=== PATIENT | male | born 2000 | race Caucasian/White ===

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

== ENCOUNTER 2019-11-29 13:15 | Inpatient (IN) | payer BC ==
[2019-12-13] MEDS ORDERED: Lactated Ringers 1,000 ML IV SCH (00:01)
[2019-12-13] MEDS ORDERED: Sodium Chloride 0.9% 10 ML Syringe FLUSH PRN (00:01)
[2019-12-13] MEDS ORDERED: Scopolamine 1.5 MG Transdermal Patch TRDERM SCH (00:01)
[2019-12-13] MEDS ORDERED: Lidocaine 1%/Sod Bicarbonate in NS 8.4% 1 ML Syringe IDERM PRN (00:01)
[2019-12-13] MEDS ORDERED: Naloxone 0.4 MG/ML SDV IVPUSH PRN (06:31)
[2019-12-13] MEDS ORDERED: Morphine 2 MG/ML SYRINGE IVPUSH PRN (06:31)
[2019-12-13] MEDS ORDERED: Magnesium Hydroxide 400 MG/5 ML Susp 30 ML Cup PO PRN (06:31)
[2019-12-13] MEDS ORDERED: Bisacodyl 5 MG Tab PO PRN (06:31)
[2019-12-13] MEDS ORDERED: Sennosides 8.6 MG Tab PO PRN (06:31)
[2019-12-13] MEDS ORDERED: Midazolam 1 MG/ML 2 ML SDV ONE ×2 (07:11→07:46)
[2019-12-13] MEDS ORDERED: ceFAZolin 1 GM Vial ONE ×2 (07:12)
[2019-12-13] MEDS ORDERED: Ondansetron 4 MG/2 ML SDV ONE ×2 (07:12→10:05)
[2019-12-13] MEDS ORDERED: fentaNYL 100 MCG/2 ML SDV ONE (07:12)
[2019-12-13] MEDS ORDERED: Propofol 200 MG/20 ML SDV ONE ×2 (07:17→10:16)
--- NOTE | 2019-12-13 07:35 | PCM.PREANE ---
Preanesthetic Assessment - Anesthesia/Transfusion/Family Hx Anesthesia History: Prior Anesthesia Reaction Type of Anesthesia Reaction: Excessive Nausea/Vomiting Family History of Anesthesia Reaction: No Transfusion History: No Prior Transfusion(s) - Review of Systems General: No Symptoms Pulmonary: No Symptoms Cardiovascular: No Symptoms Gastrointestinal: No Symptoms Neurological: No Symptoms Other: Reports: None - Physical Assessment NPO Status Date: 12/12/19 NPO Status Time: 20:00 ASA Class: 2 Mental Status: Alert & Oriented x3 Airway Class: Mallampati = 2 Dentition: Reports: Normal Dentition Thyro-Mental Finger Breadths: 3 Mouth Opening Finger Breadths: 3 ROM/Head Extension: Full Lungs: Clear to Auscultation, Normal Respiratory Effort Cardiovascular: Regular Rate, Regular Rhythm, Murmurs - Lab Values: Laboratory Last Values MRSA (PCR) Negative 11/16/19 15:39 - Imaging/EKG Impressions: 2019 EKG SB 1'AVB 2018 ECHO EF 65-70% trace mitral valve regurgitation - Allergies Allergies/Adverse Reactions: Allergies Allergy/AdvReac Type Severity Reaction Status Date / Time No Known Allergies Allergy Verified 12/10/19 12:18 - Acknowledgements Anesthesia Type Planned: Spinal Pt an Appropriate Candidate for the Planned Anesthesia: Yes Alternatives and Risks of Anesthesia Discussed w Pt/Guardian: Yes Pt/Guardian Understands and Agrees with Anesthesia Plan: Yes PreAnesthesia Questionnaire HEENT History: Reports: None Cardiovascular History: Reports: Heart Murmur Other Cardiovascular History: coronary artery ectasia Respiratory History: Reports: None Gastrointestinal History: Reports: None Genitourinary History: Reports: None CLINICAL SUPPORT ASSOCIATE History: Reports: None Musculoskeletal History: Reports: RA Other Musculoskeletal History: Juvenile RA, in remission now Neurological History: Reports: None Psychiatric History: Reports: None Endocrine/Metabolic History: Reports: None Hematologic History: Reports: None Immunologic History: Reports: Other (See Below) Other Immunologic History: macrophage activation syndrome Oncologic (Cancer) History: Reports: None Dermatologic History: Reports: None - Past Surgical History Head Surgeries/Procedures: Reports: None HEENT Surgical History: Reports: None Cardiovascular Surgical History: Reports: None Respiratory Surgical History: Reports: None GI Surgical History: Reports: None Female Surgical History: Reports: None Male Surgical History: Reports: None Endocrine Surgical History: Reports: None Neurological Surgical History: Reports: None Musculoskeletal Surgical History: Reports: Hip Replacement, Other (See Below) Other Musculoskeletal Surgeries/Procedures:: right hip replacement Oncologic Surgical History: Reports: None, Bone Marrow Aspiration Dermatological Surgical History: Reports: None - SUBSTANCE USE Smoking Status *Q: Current Every Day Smoker Recreational Drug Use History: No - HOME MEDS Home Medications: Home Meds Methotrexate Sodium [Methotrexate] 25 mg PO CHICAS 08/20/19 [History] Adalimumab [Humira(Cf) Pen] 1 dose IM Q14D 12/10/19 [History] - CURRENT (IN HOUSE) MEDS Current Meds: Current Medications Aspirin (Ecotrin) 325 mg PO BID AMIRA Bisacodyl (Dulcolax) 5 mg PO DAILY PRN PRN Reason: Constipation Morphine Sulfate 8 mg/Epinephrine HCl 0.3 mg/Cefuroxime Sodium 750 mg/Ketorolac Tromethamine 30 mg/Sodium Chloride 7.9 ml 0 mg .XX ONETIME ONE Stop: 12/13/19 08:31 Cyclobenzaprine HCl (Flexeril) 10 mg PO TID PRN PRN Reason: Spasms Docusate Sodium (Colace) 100 mg PO BID AMIRA Famotidine (Pepcid) 20 mg PO Q12H [facility] Lactated Ringer's (Ringers, Lactated) 1,000 mls @ 125 mls/hr IV ASDIRECTED [facility] Stop: 12/13/19 23:00 Cefazolin Sodium/Dextrose 2 gm (/ Premix) 50 mls @ 100 mls/hr IV Q8H [facility] Stop: 12/13/19 22:59 Ketorolac Tromethamine (Toradol) 15 mg IVPUSH Q6H PRN PRN Reason: Pain Lidocaine/Sodium Bicarbonate (Buffered Lidocaine 1% In Ns 8.4%) 0.25 ml IDERM ONETIME PRN PRN Reason: Prior to IV Start Stop: 12/13/19 18:00 Magnesium Hydroxide (Milk Of Magnesia) 30 ml PO BID PRN PRN Reason: Constipation Morphine Sulfate (Morphine) 2 mg IVPUSH Q2H PRN PRN Reason: Breakthrough Pain Naloxone HCl (Narcan) 0.1 mg IVPUSH Q5M PRN PRN Reason: Oversedation Oxycodone/Acetaminophen (Percocet 325-5 Mg) 1 - 2 tab PO Q4H PRN PRN Reason: Pain Scopolamine (Transderm-Scop) 1.5 mg TRDERM ONETIME [facility] Stop: 12/13/19 18:00 Senna (Senna) 8.6 mg PO BID PRN PRN Reason: Constipation Sodium Chloride (Saline Flush) 10 ml FLUSH ASDIRECTED PRN PRN Reason: Keep Vein Open Stop: 12/13/19 18:00 Discontinued Medications Cefazolin Sodium (Ancef) Confirm Administered Dose 1 gm .ROUTE .STK-MED ONE Stop: 12/13/19 07:13 Cefazolin Sodium (Ancef) Confirm Administered Dose 1 gm .ROUTE .STK-MED ONE Stop: 12/13/19 07:13 Fentanyl (Sublimaze) Confirm Administered Dose 100 mcg .ROUTE .STK-MED ONE Stop: 12/13/19 07:13 Midazolam HCl (Versed 1 Mg/Ml) Confirm Administered Dose 2 mg .ROUTE .STK-MED ONE Stop: 12/13/19 07:12 Ondansetron HCl (Zofran) Confirm Administered Dose 4 mg .ROUTE .STK-MED ONE Stop: 12/13/19 07:13 Propofol (Diprivan 20 Ml) Confirm Administered Dose 200 mg .ROUTE .STK-MED ONE Stop: 12/13/19 07:18
[2019-12-13] MEDS ORDERED: Dexamethasone 4 MG/ML 5 ML MDV ONE (07:44)
[2019-12-13] MEDS ORDERED: diphenhydrAMINE 50 MG/ML SDV ONE (07:45)
--- NOTE | 2019-12-13 08:33 | PCM.CONS ---
H&P History of Present Illness - General Date of Service: 12/13/19 Admit Problem/Dx: Admission Diagnosis/Problem Admission Diagnosis/Problem Osteoarthritis of hip Source of Information: Patient, Provider, RN, RN Notes Reviewed History Limitations: Reports: No Limitations - History of Present Illness Initial Comments - Free Text/Narative: Herb Genao is a 19 yo male patient of Dr. Moody who is post-operative day 0 of Left AVRIL. Hospital medicine was consulted for post-operative medical care of the following listed medical conditions. At this time he is resting comfortably in bed. Pain is controlled. He denies any chest pain, shortness of breath, palpitations, nausea, or vomiting. He carries a history of: Systolic heart murmur, coronary artery ectasia, Juvenile RA, RA, macrophage activation syndrome , Post-operative nausea and vomiting, Anemia, atypical Kawasaki disease, dacryostenosis. He is a former chewing tobacco user. He is a full code. His primary care provider is Kristin Fernandez PA-C. Left Hip Pain Score (Numeric/FACES): 0 - Related Data Allergies/Adverse Reactions: Allergies Allergy/AdvReac Type Severity Reaction Status Date / Time No Known Allergies Allergy Verified 12/13/19 11:41 Home Medications: Home Meds Methotrexate Sodium [Methotrexate] 25 mg PO SA 08/20/19 [History] Adalimumab [Humira(Cf) Pen] 1 dose IM Q14D 12/10/19 [History] Past Medical History HEENT History: Reports: None Cardiovascular History: Reports: Heart Murmur Other Cardiovascular History: coronary artery ectasia Respiratory History: Reports: None Gastrointestinal History: Reports: None Genitourinary History: Reports: None 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: Reports: None Musculoskeletal History: Reports: RA Other Musculoskeletal History: Juvenile RA, in remission now Neurological History: Reports: None Psychiatric History: Reports: None Endocrine/Metabolic History: Reports: None Hematologic History: Reports: None Immunologic History: Reports: Other (See Below) Other Immunologic History: macrophage activation syndrome Oncologic (Cancer) History: Reports: None Dermatologic History: Reports: None - Past Surgical History Head Surgeries/Procedures: Reports: None HEENT Surgical History: Reports: None Cardiovascular Surgical History: Reports: None Respiratory Surgical History: Reports: None GI Surgical History: Reports: None Female Surgical History: Reports: None Male Surgical History: Reports: None Endocrine Surgical History: Reports: None Neurological Surgical History: Reports: None Musculoskeletal Surgical History: Reports: Hip Replacement, Other (See Below) Other Musculoskeletal Surgeries/Procedures:: right hip replacement Oncologic Surgical History: Reports: None, Bone Marrow Aspiration Dermatological Surgical History: Reports: None Social & Family History - Family History Family Medical History: Noncontributory - Tobacco Use Smoking Status *Q: Current Every Day Smoker Years of Tobacco use: 2 Packs/Tins Daily: 0.2 Used Tobacco, but Quit: Yes Month/Year Tobacco Last Used: 11/19/19 - Caffeine Use Caffeine Use: Reports: Coffee, Soda - Recreational Drug Use Recreational Drug Use: No H&P Review of Systems - Review of Systems: Review Of Systems: See Below General: Reports: No Symptoms. Denies: Fever, Chills HEENT: Reports: No Symptoms. Denies: Headaches, Sore Throat Pulmonary: Reports: No Symptoms. Denies: Shortness of Breath, Wheezing, Pleuritic Chest Pain, Cough, Sputum Cardiovascular: Reports: No Symptoms. Denies: Chest Pain, Palpitations, Dyspnea on Exertion, Edema Gastrointestinal: Reports: No Symptoms. Denies: Abdominal Pain, Constipation, Distension, Nausea, Vomiting Genitourinary: Reports: No Symptoms. Denies: Pain Musculoskeletal: Reports: Leg Pain (left ) Skin: Reports: No Symptoms. Denies: Cyanosis Psychiatric: Reports: No Symptoms. Denies: Confusion Neurological: Reports: Difficulty Walking, Gait Disturbance Hematologic/Lymphatic: Reports: No Symptoms Immunologic: Reports: No Symptoms Exam - Exam Exam: See Below - Vital Signs Vital Signs: Last Vital Signs Temp 97.6 F 12/13/19 07:15 Pulse 57 L 12/13/19 07:15 Resp 16 12/13/19 07:15 BP 124/76 12/13/19 07:15 Pulse Ox 100 12/13/19 07:15 Weight: 190 lb - Exam Quality Assessment: DVT Prophylaxis General: Alert, Oriented, Cooperative. No: Mild Distress HEENT: Conjunctiva Clear, EACs Clear, Mucosa Moist & [place], Posterior Pharynx Clear, PERRLA Neck: Supple, Trachea Midline Lungs: Clear to Auscultation, Normal Respiratory Effort Cardiovascular: Regular Rate, Regular Rhythm, Systolic Murmur GI/Abdominal Exam: Normal Bowel Sounds, Soft, Non-Tender, No Distention (Male) Exam: Deferred Rectal (Males) Exam: Deferred Extremities: Normal Capillary Refill, Leg Pain, Limited Range of Motion, Other ( Bandage in place on left leg. Bandage is dry and intact. Cooling pack in place. ) Peripheral Pulses: 3+: Radial (L), Radial (R), Dorsalis Pedis (L), Dorsalis Pedis (R) Skin: Warm, Dry, Intact Neurological: Cranial Nerves Intact (Grossly ) Neuro Extensive - Mental Status: Alert, Oriented x3 Sepsis Event Note - Evaluation Sepsis Screening Result: No Definite Risk - Focused Exam Vital Signs: Vital Signs Temp Pulse Resp BP Pulse Ox 12/13/19 07:15 97.6 F 57 L 16 124/76 100 Date Exam was Performed: 12/13/19 Time Exam was Performed: 14:24 Consult PN Assessment/Plan POD#: 0 Procedures: Procedures ACUTE HEPATITIS PANEL (06/16/15) ANTINUCLEAR ANTIBODIES (06/20/14) ASSAY OF ALDOLASE (05/25/15) ASSAY OF BLOOD/URIC ACID (11/11/14) ASSAY OF CALCIUM (08/18/19) ASSAY OF CK (CPK) (01/15/18) ASSAY OF CREATININE (07/12/19) ASSAY OF FERRITIN (07/12/19) ASSAY OF HAPTOGLOBIN QUANT (11/11/14) ASSAY OF IRON (03/25/19) ASSAY OF LIPASE (09/20/15) ASSAY OF PARATHORMONE (08/18/19) ASSAY OF PREALBUMIN (08/12/19) ASSAY OF TRANSFERRIN (03/25/19) ASSAY OF TRIGLYCERIDES (11/16/14) AUTOMATED RETICULOCYTE COUNT (11/11/14) C DIFF AMPLIFIED PROBE (11/10/19) C-REACTIVE PROTEIN (08/12/19) CHEST X-RAY 1 VIEW FRONTAL (06/23/15) CHEST X-RAY 2VW FRONTAL&LATL (02/09/15) CHYLMD TRACH DNA AMP PROBE (09/24/17) COMPLETE CBC AUTOMATED (08/12/19) COMPLETE CBC W/AUTO DIFF WBC (07/12/19) COMPREHEN METABOLIC PANEL (08/12/19) CRYPTOSPORIDIUM AG IA (08/18/19) CULTURE OTHR SPECIMN AEROBIC (02/17/15) DRAIN/INJ JOINT/BURSA W/O US (12/25/18) EMERGENCY DEPT VISIT (04/02/18) EMERGENCY DEPT VISIT (04/09/17) EMERGENCY DEPT VISIT (05/25/16) EMERGENCY DEPT VISIT (09/20/15) FIBRIN DEGRADATION QUANT (12/11/16) FIBRINOGEN ACTIVITY (09/23/17) GIARDIA AG IA (08/18/19) HELICOBACTER PYLORI ANTIBODY (09/20/15) HEPATIC FUNCTION PANEL (07/12/19) HETEROPHILE ANTIBODY SCREEN (09/23/17) HYDRATE IV INFUSION ADD-ON (04/09/17) HYDRATION IV INFUSION INIT (09/07/15) LACTATE (LD) (LDH) ENZYME (05/25/15) LEUKOCYTE ASSESSMENT FECAL (08/18/19) LIPID PANEL (07/14/18) MRI JOINT LWR EXTR W/O&W/DYE (05/20/18) N.GONORRHOEAE DNA AMP PROB (09/24/17) PROTHROMBIN TIME (08/12/19) RBC SED RATE AUTOMATED (08/12/19) ROUTINE VENIPUNCTURE (04/09/17) SHIGA-LIKE TOXIN AG IA (08/18/19) STOOL CULTR AEROBIC BACT EA (08/18/19) THER/PROPH/DIAG INJ IV PUSH (04/09/17) THROMBOPLASTIN TIME PARTIAL (08/12/19) TX/PRO/DX INJ NEW DRUG ADDON (04/09/17) URINALYSIS AUTO W/SCOPE (04/09/17) VITAMIN B-12 (11/11/14) WEST NILE VIRUS AB IGM (06/20/14) X-RAY EXAM CHEST 2 VIEWS (03/25/19) X-RAY EXAM HIP UNI 1 VIEW (09/24/17) X-RAY EXAM L-S SPINE 2/3 VWS (06/23/15) X-RAY EXAM OF ABDOMEN (09/20/15) X-RAY EXAM OF COLLAR BONE (02/09/15) X-RAY EXAM OF PELVIS (09/23/17) X-RAY EXAM OF SHOULDER (06/20/14) (1) Coronary artery ectasia SNOMED Code(s): 755968496 Code(s): I77.89 - OTHER SPECIFIED DISORDERS OF ARTERIES AND ARTERIOLES Priority: High Current Visit: No (2) Macrophage activation syndrome SNOMED Code(s): 832696285 Code(s): D76.1 - HEMOPHAGOCYTIC LYMPHOHISTIOCYTOSIS Priority: High Current Visit: No (3) S/P total hip arthroplasty SNOMED Code(s): 801436915863, 174752221369 Code(s): Z96.649 - PRESENCE OF UNSPECIFIED ARTIFICIAL HIP JOINT Priority: High Current Visit: No Qualifiers: Laterality: left Qualified Code(s): Z96.642 - Presence of left artificial hip joint (4) Systemic onset juvenile idiopathic arthritis SNOMED Code(s): 720489941 Code(s): M08.20 - JUVENILE RHEUMATOID ARTHRITIS WITH SYSTEMIC ONSET, UNSP SITE Priority: High Current Visit: No (5) Systolic murmur SNOMED Code(s): 51564078 Code(s): R01.1 - CARDIAC MURMUR, UNSPECIFIED Priority: Medium Current Visit: No (6) History of postoperative nausea and vomiting SNOMED Code(s): 233578348, 830371700 Code(s): Z87.898 - PERSONAL HISTORY OF OTHER SPECIFIED CONDITIONS Priority : Medium Current Visit: No (7) Atypical Kawasaki disease SNOMED Code(s): 96386087 Code(s): M30.3 - MUCOCUTANEOUS LYMPH NODE SYNDROME [[place]] Priority: Medium Current Visit: No (8) Dacryostenosis SNOMED Code(s): 62414068 Code(s): H04.559 - ACQUIRED STENOSIS OF UNSPECIFIED NASOLACRIMAL DUCT Priority: Low Current Visit: No Qualifiers: Laterality: unspecified laterality Qualified Code(s): H04.559 - Acquired stenosis of unspecified nasolacrimal duct (9) Anemia SNOMED Code(s): 982715078 Code(s): D64.9 - ANEMIA, UNSPECIFIED Priority: Medium Current Visit: No Qualifiers: Anemia type: unspecified type Qualified Code(s): D64.9 - Anemia, unspecified (10) Ex-tobacco chewer SNOMED Code(s): 223932635 Code(s): Z87.891 - PERSONAL HISTORY OF NICOTINE DEPENDENCE Priority: Low Current Visit: No Problem List Initiated/Reviewed/Updated: Yes Plan: I/P: Acute: S/P left total hip arthroplasty - post-operative day 0 -DVT prophylaxis and pain management per primary care team -PT/OT -IS/RT -Monitor oxygen saturation -Titrate oxygen as needed -Home medications reviewed -Vital signs stable -Monitor labs -Pre-operative Hgb was 14.6 -Pre-operative GFR was >60 Osteoarthritis of left hip -Pain management per primary care team Former chewing tobacco user -Reports stopped 10 days prior -Nicotine patch if needed Chronic: Systolic heart murmur MARITZA Anemia 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 His PCP is Kristin Fernandez PA-C Thank you for allowing us to participate in the care of this patient!! Requesting Provider: Dr. Moody Date Consult Requested: 12/13/19 Patient History Reviewed: Yes Admission H&P Reviewed: Yes Notified Requestor: Yes
[2019-12-13] MEDS ORDERED: Ondansetron 4 MG/2 ML SDV IVPUSH PRN (09:33)
[2019-12-13] MEDS ORDERED: fentaNYL 100 MCG/2 ML SDV IVPUSH PRN (09:33)
[2019-12-13] MEDS ORDERED: diphenhydrAMINE 50 MG/ML SDV IVPUSH PRN (09:33)
[2019-12-13] MEDS ORDERED: Haloperidol Lactate 5 MG/ML SDV IVPUSH PRN (09:33)
[2019-12-13] MEDS: Bupivacaine 0.25% 10 ML SDV ONE ×2 (09:54→10:11)
[2019-12-13] MEDS: ceFAZolin 1 GM Vial ONE ×2 (09:55→10:06)
[2019-12-13] MEDS: Iodine/Sodium Iodide 2% Tincture 30 ML Bottle ONE ×2 (09:55→10:04)
[2019-12-13] MEDS: Morphine 8 MG, EPINEPHrine 0.3 MG, Cefuroxime 750 MG, Ketorolac 30 MG, Sodium Chloride ... ONE ×10 (09:56→10:10)
[2019-12-13] MEDS: Vancomycin 1 GM SDV ONE ×2 (09:57→10:12)
[2019-12-13] MEDS ORDERED: Lidocaine 1% 4 ML ONE (09:57)
--- NOTE | 2019-12-13 10:47 | PCM.POSTAN ---
POST ANESTHESIA ASSESSMENT - MENTAL STATUS Mental Status: Alert, Oriented - VITAL SIGNS Vital Signs: Last Vital Signs Temp 36.4 C 12/13/19 07:15 Pulse 57 L 12/13/19 07:15 Resp 16 12/13/19 07:15 BP 124/76 12/13/19 07:15 Pulse Ox 100 12/13/19 07:15 - RESPIRATORY Respiratory Status: Respiratory Rate WNL, Airway Patent, O2 Saturation Stable - CARDIOVASCULAR CV Status: Pulse Rate WNL, Blood Pressure Stable - GASTROINTESTINAL GI Status: No Symptoms - PAIN Pain Score: 0 - POST OP HYDRATION Hydration Status: Adequate & Stable
--- NOTE | 2019-12-13 11:34 | CR ---
Pelvis and left hip: AP view of the pelvis was obtained as well as crosstable lateral view of the left hip. Comparison: Previous pelvis and right hip study of 08/23/19. Left hip prosthesis is seen. Components are aligned. Soft tissue air is noted from the surgical procedure. Stable right hip prosthesis is seen. No acute bony abnormality is appreciated. Impression: 1. Satisfactory appearance of recently placed left hip prosthesis. 2. Stable appearing right hip prosthesis is noted. Diagnostic code #2 This report was dictated in [place] Standard Time
[2019-12-13] MEDS: Acetaminophen/oxyCODONE 325-5 MG Tab PO PRN ×2 (13:24→20:24)
--- NOTE | 2019-12-13 13:47 | PCM48HPAN ---
Post Anesthesia Note - EVALUATION WITHIN 48HRS OF ANESTHETIC Vital Signs in Normal Range: Yes Patient Participated in Evaluation: Yes Respiratory Function Stable: Yes Airway Patent: Yes Cardiovascular Function Stable: Yes Hydration Status Stable: Yes Pain Control Satisfactory: Yes Nausea and Vomiting Control Satisfactory: Yes (no N/V when discharged) Mental Status Recovered: Yes Vital Signs: Last Vital Signs Temp 36.3 C 12/13/19 11:25 Pulse 56 L 12/13/19 12:02 Resp 13 12/13/19 11:25 BP 114/58 L 12/13/19 12:02 Pulse Ox 100 12/13/19 12:02
[2019-12-13] MEDS: ceFAZolin 2 GM in Premix Bag 1 BAG IV SCH (16:00)
[2019-12-13] MEDS: Ketorolac 15 MG/ML SDV IVPUSH PRN (17:00)
[2019-12-13] MEDS: Famotidine 20 MG Tab PO SCH (20:24)
[2019-12-13] MEDS: Docusate Sodium 100 MG Cap PO SCH (20:24)
[2019-12-13] MEDS: Cyclobenzaprine 10 MG Tab PO PRN (20:24)
[2019-12-14] MEDS: Acetaminophen/oxyCODONE 325-5 MG Tab PO PRN ×3 (00:48→10:15)
[2019-12-14] MEDS: ceFAZolin 2 GM in Premix Bag 1 BAG IV SCH ×3 (00:48→06:57)
[2019-12-14] MEDS: Ketorolac 15 MG/ML SDV IVPUSH PRN (00:49)
[2019-12-14] MEDS: Cyclobenzaprine 10 MG Tab PO PRN (06:12)
--- NOTE | 2019-12-14 07:11 | PCM.CONSN ---
- General Info Date of Service: 12/14/19 Admission Dx/Problem (Free Text): Admission Diagnosis/Problem Admission Diagnosis/Problem Osteoarthritis of hip Functional Status: Reports: Pain Controlled, Tolerating Diet, Ambulating, Urinating, Incentive Spirometry. Denies: New Symptoms - Review of Systems General: Reports: No Symptoms. Denies: Fever, Chills HEENT: Reports: No Symptoms. Denies: Headaches, Sore Throat Pulmonary: Reports: No Symptoms. Denies: Shortness of Breath, Pleuritic Chest Pain, Cough, Sputum, Wheezing Cardiovascular: Reports: No Symptoms. Denies: Chest Pain, Palpitations, Dyspnea on Exertion Gastrointestinal: Reports: No Symptoms. Denies: Abdominal Pain, Constipation, Diarrhea, Nausea, Vomiting Genitourinary: Reports: No Symptoms. Denies: Pain Musculoskeletal: Reports: Leg Pain Skin: Reports: No Symptoms. Denies: Cyanosis Neurological: Reports: Difficulty Walking, Gait Disturbance. Denies: Confusion Psychiatric: Reports: No Symptoms - Patient Data Vitals - Most Recent: Last Vital Signs Temp 98.1 F 12/14/19 06:14 Pulse 44 L 12/14/19 06:14 Resp 18 12/14/19 06:14 BP 121/64 12/14/19 06:13 Pulse Ox 100 12/14/19 06:14 Weight - Most Recent: 196 lb 14.4 oz I&O - Last 24 Hours: Intake & Output 12/13/19 12/14/19 12/14/19 22:59 06:59 14:59 Intake Total 110 750 Output Total 400 1350 Balance -290 -600 Lab Results Last 24 Hours: Laboratory Results - last 24 hr 12/13/19 12/14/19 Range/Units 07:30 05:46 Sodium 140 (136-145) mEq/L Potassium 4.5 (3.5-5.1) mEq/L Chloride 104 (98-107) mEq/L Carbon Dioxide 24 (21-32) mEq/L Anion Gap 16.5 H (5-15) BUN 13 (7-18) mg/dL Creatinine 0.9 (0.7-1.3) mg/dL Est Cr Clr Drug Dosing 143.70 mL/min Estimated GFR (MDRD) > 60 (>60) mL/min BUN/Creatinine Ratio 14.4 (14-18) Glucose 104 (74-106) mg/dL Calcium 9.1 (8.5-10.1) mg/dL Total Bilirubin 0.7 (0.2-1.0) mg/dL AST 28 (15-37) U/L ALT 25 (16-63) U/L Alkaline Phosphatase 77 (46-116) U/L Total Protein 6.9 (6.4-8.2) g/dl Albumin 3.8 (3.4-5.0) g/dl Globulin 3.1 gm/dL Albumin/Globulin Ratio 1.2 (1-2) Blood Type O POSITIVE Gel Antibody Screen Negative Med Orders - Current: Current Medications Aspirin (Ecotrin) 325 mg PO BID [facility] Bisacodyl (Dulcolax) 5 mg PO DAILY PRN PRN Reason: Constipation Cyclobenzaprine HCl (Flexeril) 10 mg PO TID PRN PRN Reason: Spasms Last Admin: 12/14/19 06:12 Dose: 10 mg Docusate Sodium (Colace) 100 mg PO BID [facility] Last Admin: 12/13/19 20:24 Dose: 100 mg Famotidine (Pepcid) 20 mg PO Q12H [facility] Last Admin: 12/13/19 20:24 Dose: 20 mg Cefazolin Sodium/Dextrose 2 gm (/ Premix) 50 mls @ 100 mls/hr IV Q8H [facility] Stop: 12/14/19 08:14 Last Admin: 12/14/19 06:57 Dose: Not Given Ketorolac Tromethamine (Toradol) 15 mg IVPUSH Q6H PRN PRN Reason: Pain Last Admin: 12/14/19 00:49 Dose: 15 mg Magnesium Hydroxide (Milk Of Magnesia) 30 ml PO BID PRN PRN Reason: Constipation Morphine Sulfate (Morphine) 2 mg IVPUSH Q2H PRN PRN Reason: Breakthrough Pain Naloxone HCl (Narcan) 0.1 mg IVPUSH Q5M PRN PRN Reason: Oversedation Oxycodone/Acetaminophen (Percocet 325-5 Mg) 1 - 2 tab PO Q4H PRN PRN Reason: Pain Last Admin: 12/14/19 06:12 Dose: 2 tab Senna (Senna) 8.6 mg PO BID PRN PRN Reason: Constipation Discontinued Medications Bupivacaine HCl (Sensorcaine-Mpf 0.25%) Confirm Administered Dose 40 ml .ROUTE .STK-MED ONE Stop: 12/13/19 07:39 Last Admin: 12/13/19 10:11 Dose: 30 ml Cefazolin Sodium (Ancef) Confirm Administered Dose 1 gm .ROUTE .STK-MED ONE Stop: 12/13/19 07:13 Cefazolin Sodium (Ancef) Confirm Administered Dose 1 gm .ROUTE .STK-MED ONE Stop: 12/13/19 07:13 Cefazolin Sodium (Ancef) Confirm Administered Dose 2 gm .ROUTE .STK-MED ONE Stop: 12/13/19 07:39 Last Admin: 12/13/19 10:06 Dose: 2 gm Morphine Sulfate 8 mg/Epinephrine HCl 0.3 mg/Cefuroxime Sodium 750 mg/Ketorolac Tromethamine 30 mg/Sodium Chloride 7.9 ml 0 mg .XX ONETIME ONE Stop: 12/13/19 08:31 Last Admin: 12/13/19 10:10 Dose: 788.3 mg Dexamethasone (Dexamethasone) Confirm Administered Dose 20 mg .ROUTE .ST-MED ONE Stop: 12/13/19 07:45 Diphenhydramine HCl (Benadryl) Confirm Administered Dose 50 mg .ROUTE .ST-MED ONE Stop: 12/13/19 07:46 Diphenhydramine HCl (Benadryl) 25 mg IVPUSH Q6H PRN PRN Reason: pruritis Stop: 12/13/19 18:00 Fentanyl (Sublimaze) Confirm Administered Dose 100 mcg .ROUTE .STK-MED ONE Stop: 12/13/19 07:13 Fentanyl (Sublimaze) 50 mcg IVPUSH Q5M PRN PRN Reason: Pain Stop: 12/13/19 18:00 Haloperidol Lactate (Haldol) 1 mg IVPUSH ONETIME PRN PRN Reason: PERSISENT NAUSEA Stop: 12/13/19 12:00 Lactated Ringer's (Ringers, Lactated) 1,000 mls @ 125 mls/hr IV ASDIRECTED [facility] Stop: 12/13/19 23:00 Last Admin: 12/13/19 07:30 Dose: 125 mls/hr Lidocaine HCl (Xylocaine-Mpf 1%) Confirm Administered Dose 4 mls @ as directed .ROUTE .STK-MED ONE Stop: 12/13/19 09:58 Iodine (Iodine 2% Mild Tincture) Confirm Administered Dose 30 ml .ROUTE .STK- MED ONE Stop: 12/13/19 07:39 Last Admin: 12/13/19 10:04 Dose: 18 ml Lidocaine/Sodium Bicarbonate (Buffered Lidocaine 1% In Ns 8.4%) 0.25 ml IDERM ONETIME PRN PRN Reason: Prior to IV Start Stop: 12/13/19 18:00 Last Admin: 12/13/19 07:29 Dose: 0.25 ml Midazolam HCl (Versed 1 Mg/Ml) Confirm Administered Dose 2 mg .ROUTE .STK-MED ONE Stop: 12/13/19 07:12 Midazolam HCl (Versed 1 Mg/Ml) Confirm Administered Dose 2 mg .ROUTE .STK-MED ONE Stop: 12/13/19 07:47 Ondansetron HCl (Zofran) Confirm Administered Dose 4 mg .ROUTE .STK-MED ONE Stop: 12/13/19 07:13 Ondansetron HCl (Zofran) 4 mg IVPUSH ONETIME PRN PRN Reason: Nausea/Vomiting Stop: 12/13/19 13:00 Ondansetron HCl (Zofran) Confirm Administered Dose 4 mg .ROUTE .STK-MED ONE Stop: 12/13/19 10:06 Propofol (Diprivan 20 Ml) Confirm Administered Dose 200 mg .ROUTE .STK-MED ONE Stop: 12/13/19 07:18 Propofol (Diprivan 20 Ml) Confirm Administered Dose 200 mg .ROUTE .STK-MED ONE Stop: 12/13/19 10:17 Scopolamine (Transderm-Scop) 1.5 mg TRDERM ONETIME [facility] Stop: 12/13/19 18:00 Last Admin: 12/13/19 07:41 Dose: 1.5 mg Sodium Chloride (Saline Flush) 10 ml FLUSH ASDIRECTED PRN PRN Reason: Keep Vein Open Stop: 12/13/19 18:00 Tranexamic Acid (Cyklokapron) Confirm Administered Dose 1,000 mg .ROUTE .STK- MED ONE Stop: 12/13/19 07:39 Last Admin: 12/13/19 10:12 Dose: 1,000 mg Vancomycin HCl (Vancomycin) Confirm Administered Dose 1 gm .ROUTE .STK-MED ONE Stop: 12/13/19 07:39 Last Admin: 12/13/19 10:12 Dose: 1 gm - Exam Quality Assessment: DVT Prophylaxis General: Alert, Oriented, Cooperative, No Acute Distress HEENT: Pupils Equal, Pupils Reactive, Mucous Membr. Moist/[place] Neck: Supple, Trachea Midline Lungs: Clear to Auscultation, Normal Respiratory Effort Cardiovascular: Regular Rate, Regular Rhythm GI/Abdominal Exam: Normal Bowel Sounds, Soft, Non-Tender, No Distention (Male) Exam: Deferred Back Exam: Normal Inspection, Full Range of Motion Extremities: Normal Capillary Refill, Leg Pain, Limited Range of Motion, Other ( Bandage on left leg. Cooling pack in place. ) Peripheral Pulses: 3+: Radial (L), Radial (R), Dorsalis Pedis (L), Dorsalis Pedis (R) Skin: Warm, Dry, Intact Wound/Incisions: Dressing Dry and Intact Neurological: No New Focal Deficit Psy/Mental Status: Alert, Normal Affect, Normal Mood Sepsis Event Note - Evaluation Sepsis Screening Result: No Definite Risk - Focused Exam Vital Signs: Vital Signs Temp Pulse Resp BP Pulse Ox 12/14/19 06:14 98.1 F 44 L 18 100 12/14/19 06:13 51 L 121/64 100 12/14/19 00:49 98.2 F 46 L 18 127/56 L 99 12/13/19 20:28 98.1 F 55 L 18 124/71 100 Date Exam was Performed: 12/14/19 Time Exam was Performed: 08:49 Consult PN Assessment/Plan POD#: 1 Procedures: Procedures ACUTE HEPATITIS PANEL (06/16/15) ANTINUCLEAR ANTIBODIES (06/20/14) ASSAY OF ALDOLASE (05/25/15) ASSAY OF BLOOD/URIC ACID (11/11/14) ASSAY OF CALCIUM (08/18/19) ASSAY OF CK (CPK) (01/15/18) ASSAY OF CREATININE (07/12/19) ASSAY OF FERRITIN (07/12/19) ASSAY OF HAPTOGLOBIN QUANT (11/11/14) ASSAY OF IRON (03/25/19) ASSAY OF LIPASE (09/20/15) ASSAY OF PARATHORMONE (08/18/19) ASSAY OF PREALBUMIN (08/12/19) ASSAY OF TRANSFERRIN (03/25/19) ASSAY OF TRIGLYCERIDES (11/16/14) AUTOMATED RETICULOCYTE COUNT (11/11/14) C DIFF AMPLIFIED PROBE (11/10/19) C-REACTIVE PROTEIN (08/12/19) CHEST X-RAY 1 VIEW FRONTAL (06/23/15) CHEST X-RAY 2VW FRONTAL&LATL (02/09/15) CHYLMD TRACH DNA AMP PROBE (09/24/17) COMPLETE CBC AUTOMATED (08/12/19) COMPLETE CBC W/AUTO DIFF WBC (07/12/19) COMPREHEN METABOLIC PANEL (08/12/19) CRYPTOSPORIDIUM AG IA (08/18/19) CULTURE OTHR SPECIMN AEROBIC (02/17/15) DRAIN/INJ JOINT/BURSA W/O US (12/25/18) EMERGENCY DEPT VISIT (04/02/18) EMERGENCY DEPT VISIT (04/09/17) EMERGENCY DEPT VISIT (05/25/16) EMERGENCY DEPT VISIT (09/20/15) FIBRIN DEGRADATION QUANT (12/11/16) FIBRINOGEN ACTIVITY (09/23/17) GIARDIA AG IA (08/18/19) HELICOBACTER PYLORI ANTIBODY (09/20/15) HEPATIC FUNCTION PANEL (07/12/19) HETEROPHILE ANTIBODY SCREEN (09/23/17) HYDRATE IV INFUSION ADD-ON (04/09/17) HYDRATION IV INFUSION INIT (09/07/15) LACTATE (LD) (LDH) ENZYME (05/25/15) LEUKOCYTE ASSESSMENT FECAL (08/18/19) LIPID PANEL (07/14/18) MRI JOINT LWR EXTR W/O&W/DYE (05/20/18) N.GONORRHOEAE DNA AMP PROB (09/24/17) PROTHROMBIN TIME (08/12/19) RBC SED RATE AUTOMATED (08/12/19) ROUTINE VENIPUNCTURE (04/09/17) SHIGA-LIKE TOXIN AG IA (08/18/19) STOOL CULTR AEROBIC BACT EA (08/18/19) THER/PROPH/DIAG INJ IV PUSH (04/09/17) THROMBOPLASTIN TIME PARTIAL (08/12/19) TX/PRO/DX INJ NEW DRUG ADDON (04/09/17) URINALYSIS AUTO W/SCOPE (04/09/17) VITAMIN B-12 (11/11/14) [place] VIRUS AB IGM (06/20/14) X-RAY EXAM CHEST 2 VIEWS (03/25/19) X-RAY EXAM HIP UNI 1 VIEW (09/24/17) X-RAY EXAM L-S SPINE 2/3 VWS (06/23/15) X-RAY EXAM OF ABDOMEN (09/20/15) X-RAY EXAM OF COLLAR BONE (02/09/15) X-RAY EXAM OF PELVIS (09/23/17) X-RAY EXAM OF SHOULDER (06/20/14) (1) Coronary artery ectasia SNOMED Code(s): 945746729 Code(s): I77.89 - OTHER SPECIFIED DISORDERS OF ARTERIES AND ARTERIOLES Priority: High Current Visit: No (2) Macrophage activation syndrome SNOMED Code(s): 737121723 Code(s): D76.1 - HEMOPHAGOCYTIC LYMPHOHISTIOCYTOSIS Priority: High Current Visit: No (3) S/P total hip arthroplasty SNOMED Code(s): 764484535889, 500710922705 Code(s): Z96.649 - PRESENCE OF UNSPECIFIED ARTIFICIAL HIP JOINT Priority: High Current Visit: No Qualifiers: Laterality: left Qualified Code(s): Z96.642 - Presence of left artificial hip joint (4) Systemic onset juvenile idiopathic arthritis SNOMED Code(s): 696467741 Code(s): M08.20 - JUVENILE RHEUMATOID ARTHRITIS WITH SYSTEMIC ONSET, UNSP SITE Priority: High Current Visit: No (5) Systolic murmur SNOMED Code(s): 61037443 Code(s): R01.1 - CARDIAC MURMUR, UNSPECIFIED Priority: Medium Current Visit: No (6) History of postoperative nausea and vomiting SNOMED Code(s): 865478898, 963580544 Code(s): Z87.898 - PERSONAL HISTORY OF OTHER SPECIFIED CONDITIONS Priority : Medium Current Visit: No (7) Atypical Kawasaki disease SNOMED Code(s): 94006891 Code(s): M30.3 - MUCOCUTANEOUS LYMPH NODE SYNDROME [KAWASAKI] Priority: Medium Current Visit: No (8) Dacryostenosis SNOMED Code(s): 63346799 Code(s): H04.559 - ACQUIRED STENOSIS OF UNSPECIFIED NASOLACRIMAL DUCT Priority: Low Current Visit: No Qualifiers: Laterality: unspecified laterality Qualified Code(s): H04.559 - Acquired stenosis of unspecified nasolacrimal duct (9) Anemia SNOMED Code(s): 742839397 Code(s): D64.9 - ANEMIA, UNSPECIFIED Priority: Medium Current Visit: No Qualifiers: Anemia type: unspecified type Qualified Code(s): D64.9 - Anemia, unspecified (10) Ex-tobacco chewer SNOMED Code(s): 955222840 Code(s): Z87.891 - PERSONAL HISTORY OF NICOTINE DEPENDENCE Priority: Low Current Visit: No Problem List Initiated/Reviewed/Updated: Yes Plan: I/P: Acute: S/P left total hip arthroplasty - post-operative day 1 -DVT prophylaxis and pain management per primary care team -PT/OT -IS/RT -Monitor oxygen saturation -Titrate oxygen as needed -Home medications reviewed -Vital signs stable -Monitor labs -Pre-operative Hgb was 14.6; Now 13.1 -Pre-operative GFR was >60; Now >60 Osteoarthritis of left hip -Pain management per primary care team Former chewing tobacco user -Reports stopped 10 days prior -Nicotine patch if needed Chronic: Systolic heart murmur MARITZA Anemia 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 His PCP is Kristin Fernandez PA-C From a hospitalist standpoint Ty is doing well. He has been up ambulating and working with therapies. He is off of oxygen and has urinated. Labs and vital signs remain stable. He has been utilizing his IS. Pain is controlled. He is cleared for discharge pending primary team and PT/OT agreement. Thank you for allowing us to participate in the care of this patient!!
[2019-12-14] MEDS: Docusate Sodium 100 MG Cap PO SCH (08:09)
[2019-12-14] MEDS: Famotidine 20 MG Tab PO SCH (08:10)
--- NOTE | 2019-12-14 08:54 | PCM.SURGPN ---
- General Info Date of Service: 12/14/19 POD#: 1 Functional Status: Reports: Pain Controlled, Tolerating Diet, Ambulating, Urinating, Incentive Spirometry, Other (The pt is pleased that he did not note nausea following this surgery.) - Patient Data Vitals - Most Recent: Last Vital Signs Temp 98.8 F 12/14/19 08:08 Pulse 61 12/14/19 08:08 Resp 16 12/14/19 08:08 BP 117/86 12/14/19 08:08 Pulse Ox 100 12/14/19 08:08 Weight - Most Recent: 196 lb 14.4 oz I&O - Last 24 Hours: Intake & Output 12/13/19 12/14/19 12/14/19 22:59 06:59 14:59 Intake Total 110 750 Output Total 400 1350 Balance -290 -600 Lab Results Last 24 Hrs: Laboratory Results - last 24 hr 12/13/19 12/14/19 12/14/19 Range/Units 07:30 05:46 05:46 WBC 15.34 H (4.23-9.07) K/mm3 RBC 4.52 L (4.63-6.08) M/mm3 Hgb 13.1 L (13.7-17.5) gm/dl Hct 39.0 L (40.1-51.0) % MCV 86.3 (79.0-92.2) fl MCH 29.0 (25.7-32.2) pg MCHC 33.6 (32.2-35.5) g/dl RDW Std Deviation 39.3 (35.1-43.9) fL Plt Count 212 (163-337) K/mm3 MPV 11.8 (9.4-12.3) fl Sodium 140 (136-145) mEq/L Potassium 4.5 (3.5-5.1) mEq/L Chloride 104 (98-107) mEq/L Carbon Dioxide 24 (21-32) mEq/L Anion Gap 16.5 H (5-15) BUN 13 (7-18) mg/dL Creatinine 0.9 (0.7-1.3) mg/dL Est Cr Clr Drug Dosing 143.70 mL/min Estimated GFR (MDRD) > 60 (>60) mL/min BUN/Creatinine Ratio 14.4 (14-18) Glucose 104 (74-106) mg/dL Calcium 9.1 (8.5-10.1) mg/dL Total Bilirubin 0.7 (0.2-1.0) mg/dL AST 28 (15-37) U/L ALT 25 (16-63) U/L Alkaline Phosphatase 77 (46-116) U/L Total Protein 6.9 (6.4-8.2) g/dl Albumin 3.8 (3.4-5.0) g/dl Globulin 3.1 gm/dL Albumin/Globulin Ratio 1.2 (1-2) Blood Type O POSITIVE Gel Antibody Screen Negative Med Orders - Current: Current Medications Aspirin (Ecotrin) 325 mg PO BID [facility] Last Admin: 12/14/19 08:09 Dose: 325 mg Bisacodyl (Dulcolax) 5 mg PO DAILY PRN PRN Reason: Constipation Cyclobenzaprine HCl (Flexeril) 10 mg PO TID PRN PRN Reason: Spasms Last Admin: 12/14/19 06:12 Dose: 10 mg Docusate Sodium (Colace) 100 mg PO BID [facility] Last Admin: 12/14/19 08:09 Dose: 100 mg Famotidine (Pepcid) 20 mg PO Q12H [facility] Last Admin: 12/14/19 08:10 Dose: 20 mg Ketorolac Tromethamine (Toradol) 15 mg IVPUSH Q6H PRN PRN Reason: Pain Last Admin: 12/14/19 00:49 Dose: 15 mg Magnesium Hydroxide (Milk Of Magnesia) 30 ml PO BID PRN PRN Reason: Constipation Morphine Sulfate (Morphine) 2 mg IVPUSH Q2H PRN PRN Reason: Breakthrough Pain Naloxone HCl (Narcan) 0.1 mg IVPUSH Q5M PRN PRN Reason: Oversedation Oxycodone/Acetaminophen (Percocet 325-5 Mg) 1 - 2 tab PO Q4H PRN PRN Reason: Pain Last Admin: 12/14/19 06:12 Dose: 2 tab Senna (Senna) 8.6 mg PO BID PRN PRN Reason: Constipation Discontinued Medications Bupivacaine HCl (Sensorcaine-Mpf 0.25%) Confirm Administered Dose 40 ml .ROUTE .STK-MED ONE Stop: 12/13/19 07:39 Last Admin: 12/13/19 10:11 Dose: 30 ml Cefazolin Sodium (Ancef) Confirm Administered Dose 1 gm .ROUTE .STK-MED ONE Stop: 12/13/19 07:13 Cefazolin Sodium (Ancef) Confirm Administered Dose 1 gm .ROUTE .STK-MED ONE Stop: 12/13/19 07:13 Cefazolin Sodium (Ancef) Confirm Administered Dose 2 gm .ROUTE .STK-MED ONE Stop: 12/13/19 07:39 Last Admin: 12/13/19 10:06 Dose: 2 gm Morphine Sulfate 8 mg/Epinephrine HCl 0.3 mg/Cefuroxime Sodium 750 mg/Ketorolac Tromethamine 30 mg/Sodium Chloride 7.9 ml 0 mg .XX ONETIME ONE Stop: 12/13/19 08:31 Last Admin: 12/13/19 10:10 Dose: 788.3 mg Dexamethasone (Dexamethasone) Confirm Administered Dose 20 mg .ROUTE .STK-MED ONE Stop: 12/13/19 07:45 Diphenhydramine HCl (Benadryl) Confirm Administered Dose 50 mg .ROUTE .STK-MED ONE Stop: 12/13/19 07:46 Diphenhydramine HCl (Benadryl) 25 mg IVPUSH Q6H PRN PRN Reason: pruritis Stop: 12/13/19 18:00 Fentanyl (Sublimaze) Confirm Administered Dose 100 mcg .ROUTE .STK-MED ONE Stop: 12/13/19 07:13 Fentanyl (Sublimaze) 50 mcg IVPUSH Q5M PRN PRN Reason: Pain Stop: 12/13/19 18:00 Haloperidol Lactate (Haldol) 1 mg IVPUSH ONETIME PRN PRN Reason: PERSISENT NAUSEA Stop: 12/13/19 12:00 Lactated Ringer's (Ringers, Lactated) 1,000 mls @ 125 mls/hr IV ASDIRECTED [facility] Stop: 12/13/19 23:00 Last Admin: 12/13/19 07:30 Dose: 125 mls/hr Cefazolin Sodium/Dextrose 2 gm (/ Premix) 50 mls @ 100 mls/hr IV Q8H [facility] Stop: 12/14/19 08:14 Last Admin: 12/14/19 06:57 Dose: Not Given Lidocaine HCl (Xylocaine-Mpf 1%) Confirm Administered Dose 4 mls @ as directed .ROUTE .STK-MED ONE Stop: 12/13/19 09:58 Iodine (Iodine 2% Mild Tincture) Confirm Administered Dose 30 ml .ROUTE .STK- MED ONE Stop: 12/13/19 07:39 Last Admin: 12/13/19 10:04 Dose: 18 ml Lidocaine/Sodium Bicarbonate (Buffered Lidocaine 1% In Ns 8.4%) 0.25 ml IDERM ONETIME PRN PRN Reason: Prior to IV Start Stop: 12/13/19 18:00 Last Admin: 12/13/19 07:29 Dose: 0.25 ml Midazolam HCl (Versed 1 Mg/Ml) Confirm Administered Dose 2 mg .ROUTE .STK-MED ONE Stop: 12/13/19 07:12 Midazolam HCl (Versed 1 Mg/Ml) Confirm Administered Dose 2 mg .ROUTE .STK-MED ONE Stop: 12/13/19 07:47 Ondansetron HCl (Zofran) Confirm Administered Dose 4 mg .ROUTE .STK-MED ONE Stop: 12/13/19 07:13 Ondansetron HCl (Zofran) 4 mg IVPUSH ONETIME PRN PRN Reason: Nausea/Vomiting Stop: 12/13/19 13:00 Ondansetron HCl (Zofran) Confirm Administered Dose 4 mg .ROUTE .STK-MED ONE Stop: 12/13/19 10:06 Propofol (Diprivan 20 Ml) Confirm Administered Dose 200 mg .ROUTE .STK-MED ONE Stop: 12/13/19 07:18 Propofol (Diprivan 20 Ml) Confirm Administered Dose 200 mg .ROUTE .STK-MED ONE Stop: 12/13/19 10:17 Scopolamine (Transderm-Scop) 1.5 mg TRDERM ONETIME [facility] Stop: 12/13/19 18:00 Last Admin: 12/13/19 07:41 Dose: 1.5 mg Sodium Chloride (Saline Flush) 10 ml FLUSH ASDIRECTED PRN PRN Reason: Keep Vein Open Stop: 12/13/19 18:00 Tranexamic Acid (Cyklokapron) Confirm Administered Dose 1,000 mg .ROUTE .STK- MED ONE Stop: 12/13/19 07:39 Last Admin: 12/13/19 10:12 Dose: 1,000 mg Vancomycin HCl (Vancomycin) Confirm Administered Dose 1 gm .ROUTE .STK-MED ONE Stop: 12/13/19 07:39 Last Admin: 12/13/19 10:12 Dose: 1 gm - Exam Wound/Incisions: Dressing Dry and Intact General: Alert, Cooperative, No Acute Distress Lungs: Normal Respiratory Effort Extremities: Other (NVS intact for BLE. Destiny's negative. Left thigh soft.) Sepsis Event Note - Evaluation Sepsis Screening Result: No Definite Risk - Focused Exam Vital Signs: Vital Signs Temp Pulse Resp BP Pulse Ox 12/14/19 08:08 98.8 F 61 16 117/86 100 12/14/19 06:14 98.1 F 44 L 18 100 12/14/19 06:13 51 L 121/64 100 12/14/19 00:49 98.2 F 46 L 18 127/56 L 99 Date Exam was Performed: 12/14/19 Time Exam was Performed: 08:52 - Problem List Review Problem List Initiated/Reviewed/Updated: Yes - My Orders Last 24 Hours: Active Orders 24 hr Category Date Time Status Communication Order [RC] ASDIRECTED Care 12/14/19 08:46 Active Notify Provider [RC] ASDIRECTED Care 12/13/19 09:32 Active Ready for Discharge [RC] PER UNIT ROUTINE Care 12/14/19 08:45 Active Regular Diet [DIET] Diet 12/13/19 Lunch Active Aspirin [Ecotrin] Med 12/14/19 09:00 Active 325 mg PO BID Docusate Sodium [Colace] Med 12/13/19 21:00 Active 100 mg PO BID Famotidine [Pepcid] Med 12/13/19 21:00 Active 20 mg PO Q12H Medication Orders Aspirin (Ecotrin) 325 mg PO BID [facility] Last Admin: 12/14/19 08:09 Dose: 325 mg Bisacodyl (Dulcolax) 5 mg PO DAILY PRN PRN Reason: Constipation Cyclobenzaprine HCl (Flexeril) 10 mg PO TID PRN PRN Reason: Spasms Last Admin: 12/14/19 06:12 Dose: 10 mg Admin: 12/13/19 20:24 Dose: 10 mg Docusate Sodium (Colace) 100 mg PO BID [facility] Last Admin: 12/14/19 08:09 Dose: 100 mg Admin: 12/13/19 20:24 Dose: 100 mg Famotidine (Pepcid) 20 mg PO Q12H [facility] Last Admin: 12/14/19 08:10 Dose: 20 mg Admin: 12/13/19 20:24 Dose: 20 mg Ketorolac Tromethamine (Toradol) 15 mg IVPUSH Q6H PRN PRN Reason: Pain Last Admin: 12/14/19 00:49 Dose: 15 mg Admin: 12/13/19 17:00 Dose: 15 mg Magnesium Hydroxide (Milk Of Magnesia) 30 ml PO BID PRN PRN Reason: Constipation Morphine Sulfate (Morphine) 2 mg IVPUSH Q2H PRN PRN Reason: Breakthrough Pain Naloxone HCl (Narcan) 0.1 mg IVPUSH Q5M PRN PRN Reason: Oversedation Oxycodone/Acetaminophen (Percocet 325-5 Mg) 1 - 2 tab PO Q4H PRN PRN Reason: Pain Last Admin: 12/14/19 06:12 Dose: 2 tab Admin: 12/14/19 00:48 Dose: 2 tab Admin: 12/13/19 20:24 Dose: 2 tab Admin: 12/13/19 13:24 Dose: 2 tab Senna (Senna) 8.6 mg PO BID PRN PRN Reason: Constipation - Assessment Assessment (Free Text/Narrative):: POD#1 - left AVRIL - Plan Plan (Free Text/Narrative):: 1. 325mg ASA PO BID, frequent mobility, TEDs. 2. Hgb 13.1. 3. Discharge to home today. 4. AVRIL precautions. WBAT. The pt's case was discussed with Dr. Moody.
[2019-12-14] MEDS ORDERED: Aspirin 325 MG Tab.EC PO SCH (09:00)
--- NOTE | 2019-12-14 09:29 | PCM48HPAN ---
Post Anesthesia Note - EVALUATION WITHIN 48HRS OF ANESTHETIC Vital Signs in Normal Range: Yes Patient Participated in Evaluation: Yes Respiratory Function Stable: Yes Airway Patent: Yes Cardiovascular Function Stable: Yes Hydration Status Stable: Yes Pain Control Satisfactory: Yes Nausea and Vomiting Control Satisfactory: Yes Mental Status Recovered: Yes (doing well. pain tolerable) Vital Signs: Last Vital Signs Temp 98.8 F 12/14/19 08:08 Pulse 61 12/14/19 08:08 Resp 16 12/14/19 08:08 BP 117/86 12/14/19 08:08 Pulse Ox 100 12/14/19 08:08
[2019-12-14 09:53] VITALS: BP 117/86; PULSE 61
--- NOTE | 2019-12-16 11:52 | PCM.OPNOTE ---
- General Post-Op/Procedure Note Date of Surgery/Procedure: 12/13/19 Operative Procedure(s): left total hip arthroplasty Pre Op Diagnosis: left hip osteoarthrosis Post-Op Diagnosis: Same Anesthesia Technique: Local, MAC, Spinal Primary Surgeon: Matt Moody Anesthesia Provider: Chelsey Tabares Property Claims Adjuster: Tessa Elias Property Claims Adjuster: Mabel St EBLink in mLs: 200 Complications: None Condition: Good Free Text/Narrative:: 54 cup 5 stem 28-4
--- NOTE | 2019-12-16 12:11 | OR ---
DATE OF OPERATION: 12/13/2019 SURGEON: Matt Moody MD OPERATION PERFORMED: Left total hip arthroplasty. PREOPERATIVE DIAGNOSIS: Left hip osteoarthrosis. POSTOPERATIVE DIAGNOSIS: Left hip osteoarthrosis. ANESTHESIA: Local MAC with spinal. ANESTHESIA PROVIDER: Chelsey Tabares CRNA LONGITUDINAL FLOAT OPERATOR: Tessa Elias PA-C, and Mabel St LPN. ESTIMATED BLOOD LOSS: 200 mL. COMPLICATIONS: None. CONDITION: Stable. IMPLANTS: 1. [place] size 54 mm solid Tritanium II acetabular cup. 2. MDM components -4. 3. [place] Accolade II stem size 5. DESCRIPTION OF PROCEDURE: The patient was identified in the preoperative holding area. Proper site was marked and identified by surgeon. The patient was taken back to the operating theater, where after adequate anesthesia, the patient was placed in a right lateral decubitus position. Axillary roll was placed. All bony prominences were well padded. Pegs were then placed and well padded. The patient's gluteal fold was parallel to the floor. The left hip was then sterilely prepped and draped in the usual sterile fashion. OR time-out was performed. The patient received 2 g IV Ancef. Standard posterior incision was made centered over the greater trochanter. This was taken down to the IT band and gluteal fascia which was incised along the incisional length. Charnley retractor was then placed. Short external rotators were identified and takedown of the short external rotators was done from the level of the piriformis down to the lesser trochanter. The hip was then dislocated. Neck cut was completed. Attention was turned to the acetabulum. Anterior and posterior acetabular retractors were placed. Circumferential removal of the labrum as well as the pulvinar was done. Starting with a 48 reamer, I was able to ream up to a 54, which had good adequate purchase. A 54 mm Tritanium II acetabular cup was impacted into place and roughly 50 degrees of abduction with 30 to 35 degrees of anteversion. At this time, the MDM liner was impacted into place. Attention was turned to the femur. Box chisel was used out laterally. Starter awl was placed down the canal. Starting with the 0 broach, I was able to broach up to a size 5 which was found to be rotationally and vertically stable. Trial implants were then tried with a +0 and it was found to be a little bit long, so we used a -4 at this time. Trial implants were then removed. The size 5 Accolade II stem was impacted into place and the MDM components were constructed on the back table with a 42 poly with the 28 -4 Biolox femoral head. These were then impacted onto the stem. The hip was then relocated. A #5 Ethibond suture was used for closure of the short external rotators and capsule. 1 L dilute Betadine solution was irrigated through the hip along with 3 L of pulse lavage irrigation with Ancef. Topical tranexamic acid and vancomycin powder were placed. Periarticular injection was completed. A #2 barbed suture was used for closure of the IT band and gluteal fascia. 2-0 Vicryl was used subcutaneously, and Prineo was used for the skin. The patient tolerated the procedure well and sent to PACU in stable condition. MMMICHELLE /[id number]
--- NOTE | 2019-12-16 12:31 | PCM.DCSUM1 ---
Discharge Summary - Hospital Course Brief History: Herb is a 19 yo male who underwent left AVRIL with Dr. Moody on 2019. The procedure was completed under spinal anesthesia with MAC. The pt tolerated the procedure well and was admitted to the Medical-Surgical Unit. The pt received Ancef shivani-operatively. He participated in P.T. and O.T. and progressed well. He was allowed to WBAT and used a FWW for mobility. AVRIL precautions were followed. The pt's surgical wound was dressed with a Mepilex dressing and remained clean and dry. On POD#1, the pt was started on 325mg ASA BID for VTE prophylaxis. The pt used TEDs and SCDs also. On POD#1, the pt's hemoglobin was 13.1. Medical management was provided by the Hospitalist service and the pt's hospital course was uneventful. On POD#1, the pt was deemed appropriate for discharge to home with his family. - Discharge Data Discharge Date: 12/14/19 Discharge Disposition: Home, Self-Care 01 Condition: Good - Referral to Home Health Primary Care Physician: Hilary Fernandez PA-C - Patient Summary/Data Operative Procedure(s) Performed: left total hip arthroplasty Consults: Consultations 12/13/19 06:30 OT Evaluation and Treatment [CONS] Routine PT Evaluation and Treatment [CONS] Routine 12/13/19 06:31 Consult to Physician [CONS] Routine - Patient Instructions Diet: Usual Diet as Tolerated Activity: Apply Ice, As Tolerated, Elevate Extremity, Full Weight Bearing Activity, Other: Follow the total hip precautions. Driving: Do Not Drive Showering/Bathing: May Shower Wound/Incision Care: Keep Operative Site/Wound Site Clean and Dry, Do NOT Change Dressing Notify Provider of: Fever, Increased Pain, Swelling and Redness, Drainage, Nausea and/or Vomiting Other/Special Instructions: Please get up and moving around EVERY HOUR while awake. This helps to prevent blood clots. Please use your walker and have help with mobility as needed. Take a short walk in your home every hour while awake. Please take 325mg Aspirin TWICE daily. The aspirin is being used for blood clot prevention and not for pain management so please do not miss a dose of the medication. You could use a medication like Pepcid or Tagamet and a medication like Prilosec or Nexium to protect your stomach while you are using the aspirin. At home, please complete the exercises that you learned during the Hospital stay. Schedule for physical therapy. Use the pain medication as needed. The medication may cause drowsiness and constipation. Contact your primary care provider for instructions if you are constipated. You may use a stool softener like docusate sodium or Colace 100mg twice daily and/or a laxative like Miralax daily for constipation. Increase your water and fiber intake while you are using the pain medication. Discontinue use of the pain medication as soon as able. Please do not use other medications that may cause drowsiness (other pain medications, anxiety pills, cold medications, sleeping pills, etc) while using the prescription pain medication. Do not use alcohol while using the pain medication. You may use acetaminophen or Tylenol for pain management, however, please ensure you are not using over 4000 mg or 4 grams of acetaminophen per day from all sources. Your pain medication has 325mg of acetaminophen per tablet. At this time, please do not use ibuprofen (Motrin, Advil) or naproxen (Aleve) for pain management as you are using the aspirin. When the aspirin course is completed in 4 to 6 weeks, you could use ibuprofen or naproxen for pain management (if this is allowed by your primary care provider). Wear the BRITT hose during the day and you may remove these at night. Elevate the limb to decrease swelling. Place ice to the area often. Place a towel between your skin and the blue pad. Use the incentive spirometer often. Take deep breaths throughout the day. Please keep the dressing in place until follow-up. Notify the Clinic if the dressing becomes saturated. Increase your protein intake while you are healing. If you have diabetes, please closely monitor your blood sugars and notify your primary care provider with abnormal values. Elevated blood sugars increases the risk of infection. Resume use of adalimumab and methotrexate as directed by your nurse practitioner adult and primary care providers. Call the Clinic with questions or concerns - [phone]. - Discharge Plan *PRESCRIPTION DRUG MONITORING PROGRAM REVIEWED*: No *COPY OF PRESCRIPTION DRUG MONITORING REPORT IN PATIENT JOZEF: No Prescriptions/Med Rec: Acetaminophen/oxyCODONE [Percocet 325-5 MG] 1 - 2 tab PO Q4H PRN #50 tablet PRN Reason: Pain Aspirin [Ecotrin EC] 325 mg PO BID #84 tab.ec Cyclobenzaprine [Flexeril] 10 mg PO BID PRN #30 tablet PRN Reason: Spasms Home Medications: Home Meds Acetaminophen/oxyCODONE [Percocet 325-5 MG] 1 - 2 tab PO Q4H PRN #50 tablet 07/25 [Rx] Aspirin [Ecotrin EC] 325 mg PO BID #84 tab.ec 12/14/19 [Rx] Cyclobenzaprine [Flexeril] 10 mg PO BID PRN #30 tablet 12/14/19 [Rx] Docusate Sodium [Colace] 100 mg PO BID cap 12/14/19 [Rx] Famotidine [Pepcid] 20 mg PO Q12H tablet 12/14/19 [Rx] Sennosides [Senna] 8.6 mg PO BID PRN tablet 12/14/19 [Rx] bisacodyL [Dulcolax] 5 mg PO DAILY PRN #0 tablet 12/14/19 [Rx] Referrals: Tessa Elias PA-C [Physician Rehab Nurse] - (Please follow up with Tessa Elias PA-C on the following dates- December 20 at 3:15 pm, December 27 at 3:15 pm, and January 25 at 3:15 pm.) - Discharge Summary/Plan Comment DC Time >30 min.: No - Patient Data Vitals - Most Recent: Last Vital Signs Temp 98.8 F 12/14/19 08:08 Pulse 61 12/14/19 08:08 Resp 16 12/14/19 08:08 BP 117/86 12/14/19 08:08 Pulse Ox 100 12/14/19 08:08 Weight - Most Recent: 196 lb 14.4 oz Med Orders - Current: Current Medications Discontinued Medications Aspirin (Ecotrin) 325 mg PO BID [facility] Last Admin: 12/14/19 08:09 Dose: 325 mg Bisacodyl (Dulcolax) 5 mg PO DAILY PRN PRN Reason: Constipation Bupivacaine HCl (Sensorcaine-Mpf 0.25%) Confirm Administered Dose 40 ml .ROUTE .STK-MED ONE Stop: 12/13/19 07:39 Last Admin: 12/13/19 10:11 Dose: 30 ml Cefazolin Sodium (Ancef) Confirm Administered Dose 1 gm .ROUTE .STK-MED ONE Stop: 12/13/19 07:13 Cefazolin Sodium (Ancef) Confirm Administered Dose 1 gm .ROUTE .STK-MED ONE Stop: 12/13/19 07:13 Cefazolin Sodium (Ancef) Confirm Administered Dose 2 gm .ROUTE .STK-MED ONE Stop: 12/13/19 07:39 Last Admin: 12/13/19 10:06 Dose: 2 gm Morphine Sulfate 8 mg/Epinephrine HCl 0.3 mg/Cefuroxime Sodium 750 mg/Ketorolac Tromethamine 30 mg/Sodium Chloride 7.9 ml 0 mg .XX ONETIME ONE Stop: 12/13/19 08:31 Last Admin: 12/13/19 10:10 Dose: 788.3 mg Cyclobenzaprine HCl (Flexeril) 10 mg PO TID PRN PRN Reason: Spasms Last Admin: 12/14/19 06:12 Dose: 10 mg Dexamethasone (Dexamethasone) Confirm Administered Dose 20 mg .ROUTE .STK-MED ONE Stop: 12/13/19 07:45 Diphenhydramine HCl (Benadryl) Confirm Administered Dose 50 mg .ROUTE .ST-MED ONE Stop: 12/13/19 07:46 Diphenhydramine HCl (Benadryl) 25 mg IVPUSH Q6H PRN PRN Reason: pruritis Stop: 12/13/19 18:00 Docusate Sodium (Colace) 100 mg PO BID [facility] Last Admin: 12/14/19 08:09 Dose: 100 mg Famotidine (Pepcid) 20 mg PO Q12H [facility] Last Admin: 12/14/19 08:10 Dose: 20 mg Fentanyl (Sublimaze) Confirm Administered Dose 100 mcg .ROUTE .ST-MED ONE Stop: 12/13/19 07:13 Fentanyl (Sublimaze) 50 mcg IVPUSH Q5M PRN PRN Reason: Pain Stop: 12/13/19 18:00 Haloperidol Lactate (Haldol) 1 mg IVPUSH ONETIME PRN PRN Reason: PERSISENT NAUSEA Stop: 12/13/19 12:00 Lactated Ringer's (Ringers, Lactated) 1,000 mls @ 125 mls/hr IV ASDIRECTED AMIRA Stop: 12/13/19 23:00 Last Admin: 12/13/19 07:30 Dose: 125 mls/hr Cefazolin Sodium/Dextrose 2 gm (/ Premix) 50 mls @ 100 mls/hr IV Q8H AMIRA Stop: 12/14/19 08:14 Last Admin: 12/14/19 06:57 Dose: Not Given Lidocaine HCl (Xylocaine-Mpf 1%) Confirm Administered Dose 4 mls @ as directed .ROUTE .STK-MED ONE Stop: 12/13/19 09:58 Iodine (Iodine 2% Mild Tincture) Confirm Administered Dose 30 ml .ROUTE .STK- MED ONE Stop: 12/13/19 07:39 Last Admin: 12/13/19 10:04 Dose: 18 ml Ketorolac Tromethamine (Toradol) 15 mg IVPUSH Q6H PRN PRN Reason: Pain Last Admin: 12/14/19 00:49 Dose: 15 mg Lidocaine/Sodium Bicarbonate (Buffered Lidocaine 1% In Ns 8.4%) 0.25 ml IDERM ONETIME PRN PRN Reason: Prior to IV Start Stop: 12/13/19 18:00 Last Admin: 12/13/19 07:29 Dose: 0.25 ml Magnesium Hydroxide (Milk Of Magnesia) 30 ml PO BID PRN PRN Reason: Constipation Midazolam HCl (Versed 1 Mg/Ml) Confirm Administered Dose 2 mg .ROUTE .STK-MED ONE Stop: 12/13/19 07:12 Midazolam HCl (Versed 1 Mg/Ml) Confirm Administered Dose 2 mg .ROUTE .STK-MED ONE Stop: 12/13/19 07:47 Morphine Sulfate (Morphine) 2 mg IVPUSH Q2H PRN PRN Reason: Breakthrough Pain Naloxone HCl (Narcan) 0.1 mg IVPUSH Q5M PRN PRN Reason: Oversedation Ondansetron HCl (Zofran) Confirm Administered Dose 4 mg .ROUTE .STK-MED ONE Stop: 12/13/19 07:13 Ondansetron HCl (Zofran) 4 mg IVPUSH ONETIME PRN PRN Reason: Nausea/Vomiting Stop: 12/13/19 13:00 Ondansetron HCl (Zofran) Confirm Administered Dose 4 mg .ROUTE .STK-MED ONE Stop: 12/13/19 10:06 Oxycodone/Acetaminophen (Percocet 325-5 Mg) 1 - 2 tab PO Q4H PRN PRN Reason: Pain Last Admin: 12/14/19 10:15 Dose: 2 tab Propofol (Diprivan 20 Ml) Confirm Administered Dose 200 mg .ROUTE .STK-MED ONE Stop: 12/13/19 07:18 Propofol (Diprivan 20 Ml) Confirm Administered Dose 200 mg .ROUTE .STK-MED ONE Stop: 12/13/19 10:17 Scopolamine (Transderm-Scop) 1.5 mg TRDERM ONETIME AMIRA Stop: 12/13/19 18:00 Last Admin: 12/13/19 07:41 Dose: 1.5 mg Senna (Senna) 8.6 mg PO BID PRN PRN Reason: Constipation Last Admin: 12/14/19 10:17 Dose: 8.6 mg Sodium Chloride (Saline Flush) 10 ml FLUSH ASDIRECTED PRN PRN Reason: Keep Vein Open Stop: 12/13/19 18:00 Tranexamic Acid (Cyklokapron) Confirm Administered Dose 1,000 mg .ROUTE .STK- MED ONE Stop: 12/13/19 07:39 Last Admin: 12/13/19 10:12 Dose: 1,000 mg Vancomycin HCl (Vancomycin) Confirm Administered Dose 1 gm .ROUTE .STK-MED ONE Stop: 12/13/19 07:39 Last Admin: 12/13/19 10:12 Dose: 1 gm
== END 2019-12-14 10:37 | disposition home or self-care (01) | DRG 301 ==
LOC: JD.MS 12-13 07:08
PROVIDERS: ADMIT Orthopaedic Surgery; ATTEND Orthopaedic Surgery
PROC: 0SRB0JZ Replacement of Left Hip Joint with Synthetic Substitute, Open Approach (ICD-10-PCS; principal; 2019-12-13)
DX: M16.12 Unilateral primary osteoarthritis, left hip (principal); Z87.891 Personal history of nicotine dependence; Z79.899 Other long term (current) drug therapy; Z96.641 Presence of right artificial hip joint; M08.00 Unspecified juvenile rheumatoid arthritis of unspecified site; D76.1 Hemophagocytic lymphohistiocytosis
CPT/HCPCS: 01214; 36415; 73501-26-LT; 73501-LT; 80053; 85027; 86850; 86900; 86901; 87641; 97110-GP; 97116-GP; 97161-GP; 97165-GO; 97530-GP; 97535-GO; 99222; 99231; A9270-GY; C1776; J0171; J0690; J0697; J1100; J1200; J1885; J2001; J2250; J2270; J2405; J2704; J3010; J3370; J3490; J7120

== ENCOUNTER 2021-09-16 23:34 | Emergency (ER) | payer BC ==
[2021-09-17 00:05] VITALS: BP 139/78; PULSE 79
--- NOTE | 2021-09-17 00:17 | EDM.PDOC ---
ED HPI GENERAL MEDICAL PROBLEM - General Chief Complaint: Drug or Alcohol Abuse Stated Complaint: MENTAL HEALTH Time Seen by Provider: 09/17/21 00:07 - History of Present Illness INITIAL COMMENTS - FREE TEXT/NARRATIVE: 21-year-old male presents the emergency room for treatment of his alcoholism. Patient has that longstanding problems with alcoholism. He was strongly encouraged by family to come in with this today. The patient had an episode today where he thought to end end it all by sniffing H2S, however did not. The patient does not believe he could have done this. If he was sober he certainly would have no intent of hurting himself. Patient's been drinking really heavily for over a year. He has tried to stop drinking in the past and he has not suffered from seizures or other medical conditions. His last drink was roughly an hour prior to arrival. - Related Data Allergies Allergy/AdvReac Type Severity Reaction Status Date / Time No Known Allergies Allergy Verified 09/17/21 00:05 Home Meds: Home Meds Adalimumab [Humira(Cf) Pen] 40 mg SUBCUT ASDIRECTED 09/17/21 [History] LORazepam [Ativan] 1 mg PO ASDIRECTED #20 tablet 09/17/21 [Rx] Past Medical History HEENT History: Reports: None Cardiovascular History: Reports: Heart Murmur Other Cardiovascular History: coronary artery ectasia Respiratory History: Reports: None Gastrointestinal History: Reports: None Genitourinary History: Reports: None [employer] History: Reports: None Musculoskeletal History: Reports: RA Other Musculoskeletal History: Juvenile RA, in remission now Neurological History: Reports: None Psychiatric History: Reports: None Endocrine/Metabolic History: Reports: None Hematologic History: Reports: None Immunologic History: Reports: Other (See Below) Other Immunologic History: macrophage activation syndrome Oncologic (Cancer) History: Reports: None Dermatologic History: Reports: None - Past Surgical History Head Surgeries/Procedures: Reports: None HEENT Surgical History: Reports: None Cardiovascular Surgical History: Reports: None Respiratory Surgical History: Reports: None GI Surgical History: Reports: None Female Surgical History: Reports: None Male Surgical History: Reports: None Endocrine Surgical History: Reports: None Neurological Surgical History: Reports: None Musculoskeletal Surgical History: Reports: Hip Replacement, Other (See Below) Other Musculoskeletal Surgeries/Procedures:: right hip replacement Oncologic Surgical History: Reports: None, Bone Marrow Aspiration Dermatological Surgical History: Reports: None Social & Family History - Family History Family Medical History: No Pertinent Family History - Caffeine Use Caffeine Use: Reports: Coffee, Soda ED ROS GENERAL - Review of Systems Review Of Systems: See Below Constitutional: Reports: No Symptoms HEENT: Reports: No Symptoms Respiratory: Reports: No Symptoms Cardiovascular: Reports: No Symptoms GI/Abdominal: Reports: No Symptoms : Reports: No Symptoms Musculoskeletal: Reports: No Symptoms Skin: Reports: No Symptoms Neurological: Reports: No Symptoms Psychiatric: Reports: Suicidal Ideation Hematologic/Lymphatic: Reports: No Symptoms Immunologic: Reports: No Symptoms ED EXAM, GENERAL - Physical Exam Exam: See Below Exam Limited By: No Limitations General Appearance: Alert, No Apparent Distress Eye Exam: Bilateral Eye: Normal Inspection Ears: Normal External Exam, Normal Canal, Hearing Grossly Normal, Normal TMs Nose: Normal Inspection, Normal Mucosa, No Blood Throat/Mouth: Normal Inspection, Normal Lips, Normal Teeth, Normal Gums, Normal Oropharynx, Normal Voice, No Airway Compromise Head: Atraumatic, Normocephalic Neck: Normal Inspection, Supple, Non-Tender, Full Range of Motion Respiratory/Chest: No Respiratory Distress, Lungs Clear, Normal Breath Sounds, No Accessory Muscle Use, Chest Non-Tender Cardiovascular: Regular Rate, Rhythm, No Edema, No Murmur GI/Abdominal: Normal Bowel Sounds, Soft, Non-Tender Back Exam: Normal Inspection. No: CVA Tenderness (L), CVA Tenderness (R) Neurological: Alert, Oriented, No Motor/Sensory Deficits. No: Inattentive, Confused, Disoriented Psychiatric: Other (intoxicated) Skin Exam: Warm, Dry, Intact Course - Vital Signs Last Recorded V/S: Last Vital Signs Temp 36.9 C 09/17/21 00:02 Pulse 79 09/17/21 00:02 Resp 18 09/17/21 00:02 BP 139/78 09/17/21 00:02 Pulse Ox 96 09/17/21 00:02 - Orders/Labs/Meds Orders: Active Orders 24 hr Category Date Time Status DRUG SCREEN, URINE [URCHEM] Stat Lab 09/17/21 00:23 Ordered UA RFX MARIA GUADALUPE AND CULT IF INDIC [URIN] Stat Lab 09/17/21 00:21 Ordered Lactated Ringers [Ringers, Lactated] 1,000 ml Med 09/17/21 00:30 Active IV ASDIRECTED Medication Orders Lactated Ringer's (Ringers, Lactated) 1,000 mls @ 150 mls/hr IV ASDIRECTED AMIRA Last Admin: 09/17/21 01:53 Dose: 150 mls/hr Documented by: JACOB Labs: Laboratory Tests 09/17/21 09/17/21 09/17/21 Range/Units 00:30 00:30 00:30 WBC 7.66 (4.23-9.07) K/mm3 RBC 4.85 (4.63-6.08) M/mm3 Hgb 14.8 (13.7-17.5) gm/dl Hct 42.6 (40.1-51.0) % MCV 87.8 (79.0-92.2) fl MCH 30.5 (25.7-32.2) pg MCHC 34.7 (32.2-35.5) g/dl RDW Std Deviation 39.1 (35.1-43.9) fL Plt Count 252 (163-337) K/mm3 MPV 10.6 (9.4-12.3) fl Neut % (Auto) 62.5 (34.0-67.9) % Lymph % (Auto) 28.7 (21.8-53.1) % [place] % (Auto) 6.5 (5.3-12.2) % Eos % (Auto) 1.6 (0.8-7.0) Baso % (Auto) 0.4 (0.1-1.2) % Neut # (Auto) 4.79 (1.78-5.38) K/mm3 Lymph # (Auto) 2.20 (1.32-3.57) K/mm3 [place] # (Auto) 0.50 (0.30-0.82) K/mm3 Eos # (Auto) 0.12 (0.04-0.54) K/mm3 Baso # (Auto) 0.03 (0.01-0.08) K/mm3 Sodium 145 (136-145) mEq/L Potassium 4.1 (3.5-5.1) mEq/L Chloride 107 (98-107) mEq/L Carbon Dioxide 25 (21-32) mEq/L Anion Gap 17.1 H (5-15) BUN 14 (7-18) mg/dL Creatinine 0.9 (0.7-1.3) mg/dL Est Cr Clr Drug Dosing 141.31 mL/min Estimated GFR (MDRD) > 60 (>60) mL/min BUN/Creatinine Ratio 15.6 (14-18) Glucose 112 H (70-99) mg/dL Calcium 8.5 (8.5-10.1) mg/dL Magnesium 2.0 (1.8-2.4) mg/dL Total Bilirubin 0.4 (0.2-1.0) mg/dL AST 21 (15-37) U/L ALT 29 (16-63) U/L Alkaline Phosphatase 82 (46-116) U/L Total Protein 7.7 (6.4-8.2) g/dl Albumin 4.4 (3.4-5.0) g/dl Globulin 3.3 gm/dL Albumin/Globulin Ratio 1.3 (1-2) TSH 3rd Generation 0.979 (0.358-3.74) uIU/mL Salicylates 2.7 L (2.8-20) mg/dL Acetaminophen 0 L (10-30) ug/mL Ethyl Alcohol 0.16 (0.00) gm% Meds: Medications Generic Name Dose Route Start Last Admin Trade Name Freq PRN Reason Stop Dose Admin Lactated Ringer's 1,000 mls @ 150 mls/hr 09/17/21 00:30 09/17/21 01:53 Ringers, Lactated IV 150 mls/hr ASDIRECTED AMIRA Administration Discontinued Medications Generic Name Dose Route Start Last Admin Trade Name Freq PRN Reason Stop Dose Admin Lactated Ringer's 1,000 mls @ 999 mls/hr 09/17/21 00:24 09/17/21 00:31 Ringers, Lactated IV 09/17/21 01:24 999 mls/hr .BOLUS ONE Administration Ondansetron HCl 4 mg 09/17/21 00:23 09/17/21 00:31 Ondansetron 4 Mg/2 Ml Sdv IVPUSH 09/17/21 00:24 4 mg ONETIME ONE Administration - Re-Assessments/Exams Free Text/Narrative Re-Assessment/Exam: 09/17/21 06:04 Patient was allowed to sober up here in the emergency department he is awake he is alert and oriented. He has no suicidal wishes or intent. But he really wants to stop drinking. Given the option between in hospital detox versus going home he would like to go home. I have given him a handout to [place] counseling services and he is interested contacting them. I will give the patient prescription for Ativan. He agrees to follow-up at the [facility] on a daily basis. Departure - Departure Time of Disposition: 06:08 Disposition: Home, Self-Care 01 Clinical Impression: Alcohol abuse - Discharge Information Referrals: Hilary Fernandez PA-C [Primary Care Provider] - Forms: ED Department Discharge Additional Instructions: Return to the emergency room with any questions problems or worsening symptoms. Follow-up with the [facility] daily starting tomorrow while you are staying off the alcohol. If you develop any thoughts of harming yourself or anyone else promptly return immediately to the emergency room. This morning call [place] counseling services for help with your alcoholism. Sepsis Event Note (ED) - Evaluation Sepsis Screening Result: No Definite Risk - Focused Exam Vital Signs: Vital Signs Temp Pulse Resp BP Pulse Ox 09/17/21 00:02 36.9 C 79 18 139/78 96 - My Orders Last 24 Hours: My Active Orders 09/17/21 00:21 UA RFX MARIA GUADALUPE AND CULT IF INDIC [URIN] Stat 09/17/21 00:23 DRUG SCREEN, URINE [URCHEM] Stat 09/17/21 00:30 Lactated Ringers [Ringers, Lactated] 1,000 ml IV ASDIRECTED - Assessment/Plan Last 24 Hours: My Active Orders 09/17/21 00:21 UA RFX MARIA GUADALUPE AND CULT IF INDIC [URIN] Stat 09/17/21 00:23 DRUG SCREEN, URINE [URCHEM] Stat 09/17/21 00:30 Lactated Ringers [Ringers, Lactated] 1,000 ml IV ASDIRECTED
[2021-09-17] MEDS ORDERED: Ondansetron 4 MG/2 ML SDV IVPUSH ONE (00:23)
[2021-09-17] MEDS ORDERED: Lactated Ringers 1,000 ML IV ONE (00:24)
[2021-09-17] MEDS ORDERED: Lactated Ringers 1,000 ML IV SCH (00:30)
[2021-09-17 01:16] LABS: ACETAMINOPHEN 0 ug/mL (10-30)
[2021-09-17] MEDS ORDERED: LORazepam 1 MG Tab PO ONE (06:16)
== END 2021-09-17 07:37 | disposition home or self-care (01) ==
LOC: JD.ED 23:34
DX: F10.10 Alcohol abuse, uncomplicated (principal); Y90.5 Blood alcohol level of 100-119 mg/100 ml
CPT/HCPCS: 36415; 80053; 80143; 80179; 80307; 83735; 84443; 85025; 96374; 99284; A9270; J2405; J7120